=== PATIENT | male | born 1990 | race African-American/Black ===

== ENCOUNTER 2022-11-03 15:06 | Emergency (ER) | payer OTHER ==
[2022-11-03] MEDS ORDERED: LIDOCAINE 1% 20 ML MDV ONE (15:43)
[2022-11-03] MEDS ORDERED: LIDOCAINE HCL JELLY 2% 6 ML SYRINGE TOP ONE (15:45)
--- NOTE | 2022-11-03 15:46 | RAD REPORT ---
EXAM DESCRIPTION: CT - CTHCSPWOC - 11/03/2022 3:36 pm CLINICAL HISTORY: Trauma, head and neck injury. head injury COMPARISON: No comparisons TECHNIQUE: Axial 5 mm thick images of the head were obtained. Axial 2 mm thick images of the cervical spine were obtained with sagittal and coronal reconstruction images generated and reviewed. All CT scans are performed using dose optimization technique as appropriate and may include automated exposure control or mA/KV adjustment according to patient size. FINDINGS: CT HEAD WITHOUT CONTRAST: No acute hemorrhage, hydrocephalus or extra-axial collection is identified.No areas of brain edema or midline shift. Ethmoid air cell thickening. Trace thickening within the maxillary sinuses.The calvarium is intact. CT CERVICAL SPINE WITHOUT CONTRAST: No fracture or subluxation.No prevertebral soft tissues swelling is identified. IMPRESSION: No acute intracranial or cervical spine findings.
--- NOTE | 2022-11-03 15:48 | RAD REPORT ---
EXAM DESCRIPTION: CT - CTFB CLINICAL HISTORY: FACIAL PAIN COMPARISON: Head C Spine Mpr Wo Con dated 11/03/2022 TECHNIQUE: Axial 2 mm thick images of the face were obtained with sagittal and coronal reconstructio n images. All CT scans are performed using dose optimization technique as appropriate and may include automated exposure control or mA/KV adjustment according to patient size. FINDINGS: No acute facial bone fracture is seen.The mandible is intact. The globes and orbital contents are grossly unremarkable.Ethmoid air cell thickening is present. Mild bilateral maxillary sinus thickening is also present. Underpneumatized and opacified right frontal s inus. IMPRESSION: Negative for facial bone fracture.
[2022-11-03] MEDS ORDERED: CODEINE 30MG/APAP 300MG TAB ONE (15:50)
--- NOTE | 2022-11-03 17:16 | ER ---
Nurse's Notes [facility] Name: Mariposa Mccarthy Age: 32 yrs Sex: Male : 1990 Arrival Date: 11/03/2022 Time: 15:12 Bed 20 Private MD: Diagnosis: Laceration without foreign body of right ear;Contusion of unspecified part of head, initial encounter Presentation: 11/03 15:15 Chief complaint: EMS states: EMS states pt is incarcerated and safety guards told [facility] inmates to clear the doors for closure and the patient didn't move his head in time and the metal barred cell doors closed on his head. Discrepancy in information as pt states there was positive LOC from this incident and that the cell door was open and closed on his head x3, however the safety guards state he did not lose consciousness. Coronavirus screen: Vaccine status: Patient reports being unvaccinated. Client denies travel out of the [place] in the last 14 days. Ebola Screen: Patient negative for fever greater than or equal to 101.5 degrees Fahrenheit, and additional compatible Ebola Virus Disease symptoms Patient denies exposure to infectious person. Patient denies travel to an Ebola-affected area in the 21 days before illness onset. Initial Sepsis Screen: Does the patient meet any 2 criteria? No. Patient's initial sepsis screen is negative. Does the patient have a suspected source of infection? No. Patient's initial sepsis screen is negative. Risk Assessment: Do you want to hurt yourself or someone else? Patient reports no desire to harm self or others. 15:15 Method Of Arrival: EMS: [place] [id number] 15:15 Acuity: DHRUV 3 [facility] 15:21 Onset of symptoms was November 03, 2022. [facility] Triage Assessment: 15:18 General: Appears in no apparent distress. slender, Behavior is calm, cooperative, [facility] appropriate for age. Pain: Complains of pain in ears/head. Historical: - Allergies: 15:18 No Known Allergies; [facility] - PMHx: 15:18 None; [facility] - Immunization history:: Adult Immunizations up to date, Last tetanus immunization: up to date last TDAP 2021. - Social history:: Smoking status: Patient denies any tobacco usage or history of. Screenin:20 Abuse screen: Denies threats or abuse. Denies injuries from another. Nutritional [facility] screening: No deficits noted. Tuberculosis screening: No symptoms or risk factors identified. 15:21 [facility] ED Fall Risk Assessment (Adult) History of falling in the last 3 months, [facility] including since admission Yes- single mechanical fall (1 pt) Confusion or Disorientation No (0 pts) Intoxicated or Sedated No (0 pts) Impaired Gait No (0 pts) Mobility Assist Device Used No (0 pt) Altered Elimination No (0 pt) Score/Fall Risk Level 0 - 2 = Low Risk. Vital Signs: 15:15 BP 116 / 86; Pulse 62; Resp 18; Temp 98.6; Pulse Ox 100% ; Weight 88.45 kg; Height 5 [facility] ft. 7 in. (170.18 cm); Pain 5/10; 16:22 BP 120 / 74; Pulse 66; Resp 18; Pulse Ox 100% ; jh5 15:15 Body Mass Index 30.54 (88.45 kg, 170.18 cm) [facility] Adan Coma Score: 15:30 Eye Response: spontaneous(4). Verbal Response: oriented(5). Motor Response: obeys cp commands(6). Total: 15. ED Course: 15:12 Patient arrived in ED. ss 15:14 Aditya Merchant PA is PHCP. cp 15:14 Cody Porras MD is Attending Physician. cp 15:18 Triage completed. [facility] 15:18 Arm band placed on right wrist. [facility] 15:20 Patient has correct armband on for positive identification. Bed in low position. Call [facility] light in reach. Adult w/ patient. 15:20 No provider procedures requiring assistance completed. [facility] 17:14 Melody Wiggins MD is Referral Physician. cp 17:42 Patient did not have IV access during this emergency room visit. [facility] Administered Medications: 15:45 Drug: Lidocaine Gel 2 % 1 ea Volume: 15 ml; Route: Mucous Membrane; 3 15:48 Drug: Tylenol #3 (300 mg-30 mg) 2 tabs Route: PO; 5 15:58 Drug: Lidocaine (1 %) 10 ml {Note: administered via DOLLY Nicole.} Volume: 20 ml; [facility] Route: Infiltration; 17:17 CANCELLED (Physician Discretion): Ancef (cefazolin) 1 grams IM once cp 17:23 Not Given (Physician Discretion): Clindamycin 600 mg IM once 17:30 Drug: Ancef (cefazolin) 1 grams Route: IM; Site: right gluteus; [facility] Medication: 17:42 VIS not applicable for this client. [facility] Outcome: 17:15 Discharge ordered by . cp 17:41 Discharged to Law Enforcement [facility] 17:41 Condition: good 17:41 Discharge instructions given to police, Instructed on discharge instructions, follow up and referral plans. medication usage, safe sex practices, safety practices, Demonstrated understanding of instructions, follow-up care, medications, Prescriptions given X 3. 17:42 Patient left the ED. [facility] Signatures: Africa Mcgill RN RN Aditya Merchant PA PA Susan Mccullough RN RN 5 Linda Venegas RN RN [id number]
--- NOTE | 2022-11-03 17:16 | EDPHYS ---
Physician Documentation [facility] Name: Mariposa Mccarthy Age: 32 yrs Sex: Male : 1990 Arrival Date: 11/03/2022 Time: 15:12 Bed 20 Private MD: ED Physician Cody Porras HPI: 11/03 15:30 This 32 yrs old Black Male presents to ER via EMS with complaints of Head Injury cp Without LOC-Adult. 15:30 The patient or guardian reports injury. The complaints affect the right ear and left cp cheek. Context of injury: The problem was sustained at care home, resulted from a direct blow, metal bars. Onset: The symptoms/episode began/occurred today. 15:30 Associated signs and symptoms: Loss of consciousness: This patient did not experience cp any loss of consciousness. Pertinent positives: headache, Pertinent negatives: neck pain, seizure. Severity of symptoms: in the emergency department the symptoms are unchanged, despite home interventions. Historical: - Allergies: 15:18 No Known Allergies; jh5 - PMHx: 15:18 None; [facility] - Immunization history:: Adult Immunizations up to date, Last tetanus immunization: up to date last TDAP 2021. - Social history:: Smoking status: Patient denies any tobacco usage or history of. ROS: 15:35 Constitutional: Negative for body aches, chills, fever, poor PO intake. cp 15:35 Eyes: Negative for injury, pain, redness, and discharge. cp 15:35 ENT: Positive for ear pain, Negative for difficulty swallowing, difficulty handling secretions. 15:35 Neck: Positive for tenderness, Negative for stiffness, swelling. 15:35 Cardiovascular: Negative for chest pain, palpitations. 15:35 Respiratory: Negative for cough, shortness of breath, wheezing. 15:35 Abdomen/GI: Negative for abdominal pain, nausea, vomiting, diarrhea, constipation. 15:35 Back: Negative for pain at rest, pain with movement. 15:35 Neuro: Positive for headache, Negative for altered mental status, loss of consciousness, weakness. 15:35 All other systems are negative. Exam: 15:40 Constitutional: The patient appears in no acute distress, alert, awake, cp non-diaphoretic, non-toxic, well developed, well nourished. 15:40 Head/face: Noted is a laceration(s), that is deep, that is jagged, of the right ear, cp Sinus tenderness, that is mild, is located over the left maxillary sinus. 15:40 Eyes: Pupils: equal, round, and reactive to light and accomodation, Extraocular movements: intact throughout, Conjunctiva: normal, no exudate, no injection, Sclera: no appreciated abnormality, Lids and lashes: appear normal, bilaterally. 15:40 ENT: External ear(s): laceration, that is deep, that is irregular, pinna of right ear, Ear canal(s): bleeding, is not appreciated, TM's: dullness, bilaterally, Nose: is normal, Mouth: Lips: moist, Oral mucosa: moist, Posterior pharynx: Airway: no evidence of obstruction, patent. 15:40 Neck: External neck: swelling, is not appreciated, tenderness, that is mild, of the cp right side of neck and left side of neck, ROM/movement: pain, that is mild, with any movement, limited range of motion, is not appreciated, nuchal rigidity, is not appreciated. 15:40 Chest/axilla: Inspection: normal, Palpation: is normal, no crepitus, no tenderness. 15:40 Cardiovascular: Rate: normal, Rhythm: regular. cp 15:40 Respiratory: the patient does not display signs of respiratory distress, Respirations: normal, no use of accessory muscles, no retractions, labored breathing, is not present, Breath sounds: are clear throughout, no decreased breath sounds, no stridor, no wheezing. 15:40 Abdomen/GI: Inspection: abdomen appears normal, Bowel sounds: active, all quadrants, Palpation: abdomen is soft and non-tender, in all quadrants. 15:40 Back: pain, is absent, ROM is normal. 15:40 Musculoskeletal/extremity: Exam is negative for decreased range of motion, deformity, injury. 15:40 Neuro: Orientation: to person, place \T\ time. Mentation: is normal, Cerebellar function: is grossly normal, Motor: moves all fours, strength is normal, Sensation: is normal. Vital Signs: 15:15 BP 116 / 86; Pulse 62; Resp 18; Temp 98.6; Pulse Ox 100% ; Weight 88.45 kg; Height 5 jh5 ft. 7 in. (170.18 cm); Pain 5/10; 16:22 BP 120 / 74; Pulse 66; Resp 18; Pulse Ox 100% ; jh5 15:15 Body Mass Index 30.54 (88.45 kg, 170.18 cm) 5 Adan Coma Score: 15:30 Eye Response: spontaneous(4). Verbal Response: oriented(5). Motor Response: obeys cp commands(6). Total: 15. Laceration: 17:13 Wound Repair of 6cm ( 2.4in ) subcutaneous laceration to right ear. Skin/tissue flap cp noted.. Distal neuro/vascular/tendon intact. Anesthesia: Wound infiltrated with 5 mls of 1% lidocaine. Wound prep: Moderate cleansing by me, Wound irrigation by me. Skin closed with 15 5-0 Prolene using interrupted sutures and sterile technique. Dressed with Bacitracin, 4x4's. Patient tolerated well. MDM: 15:18 Patient medically screened. cp 17:15 Data reviewed: vital signs, nurses notes, radiologic studies, CT scan. cp 17:15 Consideration of Admission/Observation Escalation of care including cp admission/observation considered. I considered the following discharge prescriptions or medication management in the emergency department Medications were administered in the Emergency Department. See MAR. Test considered but Not performed: Labs: cbc, bmp. Counseling: I had a detailed discussion with the patient and/or guardian regarding: the historical points, exam findings, and any diagnostic results supporting the discharge/admit diagnosis, radiology results, the need for outpatient follow up, an ENT specialist, to return to the emergency department if symptoms worsen or persist or if there are any questions or concerns that arise at home. Response to treatment: the patient's symptoms have markedly improved after treatment, and as a result, I will discharge patient. Special discussion: Based on the patient's history, exam and DX evaluation, there is no indication for emergent intervention or inpatient TX. It is understood by the patient/guardian that if the SXs persist or worsen they need to return immediately for re-evaluation. 11/03 15:23 Order name: CT Head C Spine cp 11/03 15:23 Order name: CT Facial Bones W/O Con cp 11/03 15:47 Order name: CT; Complete Time: 16:09 EDMS 11/03 15:49 Order name: CT; Complete Time: 16:09 EDIN 11/03 15:26 Order name: Dressing - Wound; Complete Time: 15:57 cp 11/03 15:26 Order name: Gloves, Sterile; Complete Time: 15:57 cp 11/03 15:26 Order name: Setup Suture Tray; Complete Time: 15:57 cp Administered Medications: 15:45 Drug: Lidocaine Gel 2 % 1 ea Volume: 15 ml; Route: Mucous Membrane; 3 15:48 Drug: Tylenol #3 (300 mg-30 mg) 2 tabs Route: PO; 5 15:58 Drug: Lidocaine (1 %) 10 ml {Note: administered via PA. Corey} Volume: 20 ml; 5 Route: Infiltration; 17:17 CANCELLED (Physician Discretion): Ancef (cefazolin) 1 grams IM once cp 17:23 Not Given (Physician Discretion): Clindamycin 600 mg IM once cp 17:30 Drug: Ancef (cefazolin) 1 grams Route: IM; Site: right gluteus; 5 Disposition Summary: 11/03/22 17:15 Discharge Ordered Location: Home cp Problem: new cp Symptoms: have improved cp Condition: Stable cp Diagnosis - Laceration without foreign body of right ear cp - Contusion of unspecified part of head, initial encounter cp Followup: cp - With: Melody Wiggins MD - When: suture removal in 10 days - Reason: Wound Recheck Discharge Instructions: - Discharge Summary Sheet cp - Facial or Scalp Contusion cp - Head Injury, Adult cp - Facial Laceration cp Forms: - Medication Reconciliation Form cp - Thank You Letter cp - Antibiotic Education cp - Prescription Opioid Use cp Prescriptions: - Cephalexin 500 mg Oral Capsule - take 1 capsule by ORAL route every 6 hours for 10 days; 40 capsule; Refills: 0, cp Product Selection Permitted - Ibuprofen 800 mg Oral Tablet - take 1 tablet by ORAL route every 8 hours As needed take with food; 30 tablet; cp Refills: 0, Product Selection Permitted - Tylenol-Codeine #3 300 mg-30 mg Oral - take 2 tablet by ORAL route every 8 hours; 10 tablet; Refills: 0, Product cp Selection Permitted Signatures: Dispatcher [employer] EDMS Aditya Merchant PA PA cp Rees, Jessica, RN RN 5 Linda Venegas RN RN 3 Corrections: (The following items were deleted from the chart) 17:17 17:13 Ancef (cefazolin) 1 grams IM once ordered. cp cp 17:25 17:13 Dressing - Wound ordered. cp jh5
[2022-11-03] MEDS ORDERED: CEFAZOLIN SODIUM 1 GM/VIAL ONE (17:27)
[2022-11-03 17:53] VITALS: TEMP 98.6; O2SAT 100
[2022-11-03 17:54] VITALS: BP 120/74
== END 2022-11-03 17:42 | disposition home or self-care (01) ==
LOC: ER 15:06
PROC: 0HQ2XZZ Repair Right Ear Skin, External Approach (ICD-10-PCS; principal; 2022-11-03)
DX: S01.311A Laceration without foreign body of right ear, initial encounter (principal)
CPT/HCPCS: 70450; 72125; 70486; 76377; 12014; J0690; J2001